=== PATIENT | male | born 1990 | race Caucasian/White ===

== ENCOUNTER 2020-06-23 12:48 | Emergency (ER) | payer OTHER ==
[2020-06-23 14:16] LABS: RED BLOOD COUNT 5.02 M/UL (4.20-5.50); WHITE BLOOD COUNT 4.7 K/UL (4.5-11.0)
[2020-06-23 14:49] LABS: BUN/CREATININE RATIO 11 (0-10)
== END 2020-06-23 16:00 | disposition home or self-care (01) ==
LOC: ER1 12:48
PROVIDERS: Physician Assistant
DX: N50.811 Right testicular pain (principal); R10.9 Unspecified abdominal pain; Z86.19 Personal history of other infectious and parasitic diseases
CPT/HCPCS: 36415; 76870; 80053; 81001; 85025; 87086; 99284